=== PATIENT | female | born 1930 | race Caucasian/White ===

== ENCOUNTER 2016-09-24 12:08 | Emergency (ER) | payer OTHER ==
[~2016-09-24] VITALS: Ht 162.6 cm; Wt 56.5 kg
[~2016-09-24 12:08] MED LIST: BEN25 PO; CHLO5CAP PO; DIGO125T PO; DILT240C62 PO; FURO20TA3 PO; HYDR-3498 PO; LETR2.5T PO; RIVA20TA PO; ULT50 PO
[2016-09-24 12:11] VITALS: Ht 162.6 cm; Wt 56.5 kg
[2016-09-24] MEDS ORDERED: SOD CHLORIDE 0.9% 500 ML IV STA (15:35)
[2016-09-24 16:12] LABS: ADD UMIC YES; URINE BILIRUBIN (Dip) NEGATIVE (NEGATIVE); URINE BLOOD (Dip) NEGATIVE (NEGATIVE); URINE COLOR AMBER (YELLOW); URINE GLUCOSE (Dip) NEGATIVE (NEGATIVE); URINE KETONES (Dip) TRACE (NEGATIVE); URINE LEUKOCYTE ESTERASE (Dip) NEGATIVE (NEGATIVE); URINE NITRITE (Dip) NEGATIVE (NEGATIVE); URINE TOTAL PROTEIN (Dip) TRACE (NEGATIVE); URINE UROBILINOGEN (Dip) 0.2 E.U./dL (0.1-1.0)
[2016-09-24 16:16] LABS: BASOPHIL # 0.1 10^3/ul (0.0-0.1); BASOPHILS % 0.8 % (0.0-2.0); EOSINOPHILS # 0.1 10^3/ul (0.0-0.5); EOSINOPHILS % 0.9 % (0.0-7.0); HEMATOCRIT 37.6 % (37.0-47.0); HEMOGLOBIN 11.9 g/dl (12.0-16.0); LYMPHOCYTES % 18.1 % (15.0-51.0); MEAN CORPUSCULAR HEMOGLOBIN 25.2 pg (29.0-33.0); MEAN CORPUSCULAR HGB CONC 31.5 g/dl (32.0-37.0); MEAN CORPUSCULAR VOLUME 79.9 fl (82.0-101.0); MEAN PLATELET VOLUME 8.5 fl (7.4-10.4); MONOCYTE # 1.5 10^3/ul (0.3-0.9); MONOCYTES % 13.4 % (0.0-11.0); NEUTROPHIL # 7.4 10^3/ul (1.6-7.5); NEUTROPHILS % 66.8 % (39.0-77.0); PLATELET COUNT 324 10^3/UL (140-440); RED BLOOD COUNT 4.71 10^6/ul (4.20-5.40); RED CELL DISTRIBUTION WIDTH 16.6 % (11.5-14.5); UNCORRECTED WBC 11.1 10^3/ul (4.8-10.8); WHITE BLOOD COUNT 11.1 10^3/ul (4.8-10.8)
--- NOTE | 2016-09-24 16:18 | RADRPT ---
PROCEDURE: XR Chest AP portable CLINICAL INDICATION: Abdominal pain, fever TECHNIQUE: An AP portable radiograph of the chest was submitted. COMPARISON: 10/08/2015 FINDINGS: Support Hardware: The left central venous catheters been removed. Cardiovascular: The heart is mildly enlarged, the aorta appears tortuous while the peripheral pulmon reji vasculature is upper normal. Lung Pro: The lung pro are mildly hyperexpanded. The interstitial infiltrates have essentiall y resolved. Pleural Spaces: No pneumothorax or pleural effusion is identified. Osseous Structures: The osseous structures appear intact. Soft Tissues: The soft tissues appear unremarkable. IMPRESSION: 1. Interval removal of the right subclavian central venous catheter. 2. Mild cardiomegaly with aortic tortuosity without CHF. 3. Mild persistent pulmonary hyperexpansion with the interstitial infiltrates seen previously lina ramírezlly resolved. Physician Mattie Date Time Electronically viewed and signed by Physician Mattie on 09/24/2016 16:18 /
[2016-09-24 16:19] LABS: INR 1.47; PROTIME 17.9 Sec (12.2-14.2); PT RATIO 1.4
[2016-09-24 16:20] LABS: PARTIAL THROMBOPLASTIN TIME 48.3 Sec (25.0-35.0)
[2016-09-24 16:21] LABS: ALBUMIN 4.5 g/dl (3.3-4.9)
[2016-09-24 16:22] LABS: CHLORIDE 98 mmol/L (97-110); POTASSIUM 4.4 mmol/L (3.5-5.1); SODIUM 142 mmol/L (135-144)
[2016-09-24 16:23] LABS: BACTERIA,URINE RARE; SQUAMOUS EPITHELIAL CELL,UR RARE; URINE RBCS 0-2 /HPF (0)
[2016-09-24 16:24] LABS: ALBUMIN/GLOBULIN RATIO 1.18; ALKALINE PHOSPHATASE 175 IU/L (42-121); ANION GAP 15 (8-16); ASPARTATE AMINO TRANSFERASE 44 IU/L (15-46); BILIRUBIN,INDIRECT 0.2 mg/dl (0-1.1); BILIRUBIN,TOTAL 0.2 mg/dl (0.2-1.3); BLOOD UREA NITROGEN 17 mg/dl (7-20); CARBON DIOXIDE 33 mmol/L (21-31); CREATININE 0.46 mg/dl (0.44-1.00); TOTAL PROTEIN 8.3 g/dl (6.1-8.1)
[2016-09-24 16:25] LABS: ALANINE AMINOTRANSFERASE 53 IU/L (13-69); CALCIUM 10.2 mg/dl (8.4-10.2); GLUCOSE 116 mg/dl (70-220)
[2016-09-24 16:26] LABS: CONDITION 1; LH ANALYZER COMMENTS 1
[2016-09-24] MEDS ORDERED: CALC-58 PO (16:36)
[2016-09-24 16:37] LABS: TROPONIN-I < 0.012 ng/ml (0.00-0.12)
[2016-09-24] MEDS ORDERED: CHOL20003 PO (16:42)
[2016-09-24] MEDS ORDERED: MULT1CAP25 PO (16:45)
[2016-09-24] MEDS ORDERED: IBUP400T22 PO (16:49)
--- NOTE | 2016-09-24 16:49 | ERD ---
ER Documentation Chief Complaint Date/Time DATE: 09/24/16 TIME: 16:46 Chief Complaint FEVER , COUGH X 2 DAYS HPI This is an 86-year-old female who presents to the emergency room with a chief complaint of a fever, and a cough and body aches for 2 days. The patient states that she has had these symptoms and came to the ER today for evaluation. She does state that she has a history of cancer and states that she is not on chemotherapy at this time. She came to the ER for evaluation of her symptoms. ROS All systems reviewed and are negative except as per history of present illness. Medications Home Meds Active Scripts Rivaroxaban* (Xarelto*) 20 Mg Tablet, 20 MG PO WITH DINNER, #30 TAB 3 Refills Prov:KENDRA PERRY 04/23/15 Reported Medications Multivitamin,Ther and Minerals (Multivitamins with Minerals Hp) 1 Each Capsule, 1 EACH PO DAILY, CAP 09/24/16 Cholecalciferol (Vitamin D3) (VITAMIN D-3) 2,000 Unit Capsule, 2000 UNIT PO DAILY, CAP 09/24/16 Calcium Citrate/Vitamin D3 (Calcium Citrate - Vit D Tablet) 1 Each Tablet, 2 EACH PO DAILY, TAB 09/24/16 Diltiazem Hcl* (Cartia XT*) 240 Mg Cap.sr.24h, 240 MG PO DAILY, CAP 04/11/15 Furosemide* (Furosemide*) 20 Mg Tablet, 20 MG PO DAILY, TAB 04/11/15 Hydrocodone Bit-Acetaminophen* ([place]*) 5-325 Mg Tab, 1 TAB PO Q6 Y for SEVERE PAIN LEVEL 7-10, TAB 04/11/15 Digoxin* (Digoxin*) 0.125 Mg Tab, 0.125 MG PO DAILY, TAB 04/11/15 Discontinued Reported Medications Diphenhydramine Hcl* (Benadryl*) 25 Mg Cap, 25 MG PO Q6 Y for ITCHING, CAP 04/11/15 Letrozole* (Letrozole*) 2.5 Mg Tablet, 2.5 MG PO DAILY, TAB 04/11/15 Chlordiazepoxide* (Chlordiazepoxide*) 5 Mg Capsule, 5-10 MG PO QHS, CAP 04/11/15 Discontinued Scripts Tramadol HCl (Tramadol HCl) 50 Mg Tablet, 25 MG PO Q6 Y for PAIN, #20 TAB Prov:MIKE TORO DO 10/08/15 Allergies Allergies: Coded Allergies: No Known Allergy (Unverified , 09/24/16) PMhx/Soc History of Surgery: Yes (OVERECTOMY, HYSTERECTOMY; CHOLECYSTECTOMY) Anesthesia Reaction: No Hx Neurological Disorder: Yes (HAS SOME NUMBNESS AND TINGLING ON FEET) Hx Respiratory Disorders: No ( ) Hx Cardiac Disorders: Yes (HEART FAILURE; AFIB; HEART MURMUR) Hx Psychiatric Problems: No Hx Miscellaneous Medical Probl: Yes (COLON CA; OVARIAN CA; SEPSIS;DVT) Hx Alcohol Use: Yes Hx Substance Use: No Hx Tobacco Use: Yes (4 CIGS) Smoking Status: Current every day smoker Physical Exam Vitals Vital Signs Date Time Temp Pulse Resp B/P Pulse Ox O2 Delivery O2 Flow Rate FiO2 09/24/16 12:11 98.2 96 18 140/67 96 Physical Exam INITIAL VITAL SIGNS: Reviewed by me GENERAL: The patient is well developed and appropriate for usual state of health in no apparent distress HEENT: Pupils equal, round, and reactive to light. EOMI. There is no scleral icterus. NECK: C-spine is soft and supple, there is no meningismus. There is no cervical lymphadenopathy. LUNGS: Clear to auscultation bilaterally. There are no rales, wheezes or rhonchi. HEART: Regular rate and rhythm, no murmurs, clicks, rubs or gallops. ABDOMEN: Soft, non-tender, non-distended. There are bowel sounds in all four quadrants. No rebound or guarding. EXTREMITIES: There is no peripheral cyanosis or edema. No focal swelling or erythema. NEUROLOGICAL: The patient moves all four extremities with 5/5 strength. Cranial nerves II - XII are intact. Normal gait. Alert and oriented SKIN: There is no apparent rash or petechiae. HEME/LYMPHATIC: There is no evidence of excessive bruising or lymphedema. PSYCHIATRIC: The patient does not appear anxious or depressed. Result Diagram: 09/24/16 1550 09/24/16 1550 Results 24 hrs Laboratory Tests Test 09/24/16 15:50 Activated Partial Thromboplast Time 48.3Sec Alanine Aminotransferase (ALT/SGPT) 53IU/L Albumin 4.5g/dl Albumin/Globulin Ratio 1.18 Alkaline Phosphatase 175IU/L Anion Gap 15 Aspartate Amino Transf (AST/SGOT) 44IU/L Basophils # 0.110^3/ul Basophils % 0.8% Blood Morphology Comment Blood Urea Nitrogen 17mg/dl Calcium Level 10.2mg/dl Carbon Dioxide Level 33mmol/L Chloride Level 98mmol/L Creatinine 0.46mg/dl Direct Bilirubin 0.00mg/dl Eosinophils # 0.110^3/ul Eosinophils % 0.9% Globulin 3.80g/dl Glucose Level 116mg/dl Hematocrit 37.6% Hemoglobin 11.9g/dl INR International Normalized Ratio 1.47 Indirect Bilirubin 0.2mg/dl Lipase 27U/L Lymphocytes # 2.010^3/ul Lymphocytes % 18.1% Mean Corpuscular Hemoglobin 25.2pg Mean Corpuscular Hemoglobin Concent 31.5g/dl Mean Corpuscular Volume 79.9fl Mean Platelet Volume 8.5fl Monocytes # 1.510^3/ul Monocytes % 13.4% Neutrophils # 7.410^3/ul Neutrophils % 66.8% Nucleated Red Blood Cells # 0.010^3/ul Nucleated Red Blood Cells % 0.0/100WBC Platelet Count 43277^3/UL Potassium Level 4.4mmol/L Prothrombin Time 17.9Sec Prothrombin Time Ratio 1.4 Red Blood Count 4.7110^6/ul Red Cell Distribution Width 16.6% Sodium Level 142mmol/L Total Bilirubin 0.2mg/dl Total Protein 8.3g/dl Troponin I < 0.012ng/ml Urine Bacteria RARE Urine Bilirubin NEGATIVE Urine Clarity CLEAR Urine Color ELI Urine Glucose NEGATIVE% Urine Hemoglobin NEGATIVE Urine Ketones TRACE Urine Leukocyte Esterase NEGATIVE Urine Microscopic RBC 0-2/HPF Urine Microscopic WBC 0-2/HPF Urine Nitrite NEGATIVE Urine Specific [place] 1.025 Urine Squamous Epithelial Cells RARE Urine Total Protein TRACE Urine Urobilinogen 0.2 E.U./dL Urine pH 6.0 White Blood Count 11.110^3/ul Current Medications Medications (Trade) Dose Ordered Sig/Remi Route PRN Reason Start Time Stop Time Status Last Admin Dose Admin Sodium Chloride (NS) 500 ml @ 500 mls/hr Q1H STAT IV 09/24/16 15:35 09/24/16 16:34 DC 09/24/16 15:41 Procedures/MDM EKG: Rate/Rhythm: [Normal Sinus Rhythm] QRS, ST, T-waves: [No changes consistent w/ acute ischemia] Impression: [No evidence of ischemia or arrhythmia] Chest X-ray 1V Interpreted by me: Soft Tissue: No acute abnormalities Bones: No acute abnormalities Mediastinum/Cardiac Silhouette/Lungs: [No acute abnormalities] This 86-year-old female presents to the emergency room for evaluation of a fever , cough, body aches and a headache. Patient's symptoms have been present for 2 days duration. On my examination this patient is afebrile, not tachycardic, she did have a slightly dry mucous membranes on my examination. Lab work was obtained which was normal. I did also obtain a urinalysis which shows mild dehydration. X-ray does not show any signs of acute infiltrates. This patient was given 500 cc of fluid in the emergency room, she was also given 200 mg of Motrin p.o. I feel her symptoms are likely viral in nature and she is suffering from myalgias from a viral syndrome. This patient's influenza swab was also negative and will be discharged home at this time. Departure Diagnosis: Primary Impression: Fever Additional Impressions: Viral syndrome Ketonuria Condition: Stable MIKE TORO DO Sep 24, 2016 16:49
[2016-09-24] MEDS ORDERED: IBUPROFEN 200 MG TAB PO ONE (17:00)
[2016-09-24 17:30] VITALS: BP 151/75; PULSE 88; RESP 18; TEMP 98.2
== END 2016-09-24 17:31 | disposition home or self-care (01) ==
LOC: E/R 12:08
DX: R50.9 Fever, unspecified (principal); B34.9 Viral infection, unspecified; R82.4 Acetonuria; I50.9 Heart failure, unspecified; F17.210 Nicotine dependence, cigarettes, uncomplicated; R40.2142 Coma scale, eyes open, spontaneous, at arrival to emergency department; R40.2252 Coma scale, best verbal response, oriented, at arrival to emergency department; R40.2362 Coma scale, best motor response, obeys commands, at arrival to emergency department; E86.0 Dehydration; Z85.038 Personal history of other malignant neoplasm of large intestine; Z85.43 Personal history of malignant neoplasm of ovary
CPT/HCPCS: 71010; 80053; 81001; 83690; 84484; 85025; 85610; 85730; 87400; 93005; J7040; 36415; 81003

== ENCOUNTER 2018-12-23 02:53 | Emergency (ER) | payer MEDICARE, BC ==
[~2018-12-23] VITALS: Ht 160 cm; Wt 55.0 kg
[~2018-12-23 02:53] MED LIST changes: -BEN25 PO; +CALC-58 PO; -CHLO5CAP PO; +CHOL200073 PO; +IBUP-1561 PO; -LETR2.5T PO; +MULT1CAP25 PO; -RIVA20TA PO; +RIVA20TA5 PO; -ULT50 PO
[2018-12-23 03:02] VITALS: Ht 160 cm; Wt 55.0 kg
[2018-12-23] MEDS ORDERED: HYDROCODONE/APAP (10/325) TAB PO ONE (03:30)
[2018-12-23] MEDS ORDERED: HYDR-3980 PO (05:08)
--- NOTE | 2018-12-23 05:17 | ERD ---
ER Documentation Chief Complaint Chief Complaint PT reports trip and fall c/o L back pain KATHIA WEBER This is an 88-year-old female complains of back pain status post trip and fall approximately 3 hours prior to arrival. She denies any head trauma or loss of consciousness but does complain of some lumbar back pain. Denies any bowel or bladder incontinence. Denies any focal neurological complaints. Pain is mild to moderate intensity in the lumbar spine and is paraspinal bilaterally. ROS All systems reviewed and are negative except as per history of present illness. Medications Home Meds Active Scripts Hydrocodone/Acetaminophen ([place] 10-325 Tablet) 1 Each Tablet, 1 TAB PO Q6H PRN for PAIN, #7 TAB Prov:SCOTT SWANSON 12/23/18 Ibuprofen* (Motrin*) 400 Mg Tab, 200 MG PO Q8, #20 TAB Prov:MIKE TORO DO 09/24/16 Rivaroxaban* (Xarelto*) 20 Mg Tablet, 20 MG PO WITH DINNER, #30 TAB 3 Refills Prov:KENDRA PERRY 04/23/15 Reported Medications Multivitamin,Ther and Minerals (Multivitamins with Minerals Hp) 1 Each Capsule, 1 EACH PO DAILY, CAP 09/24/16 Cholecalciferol (Vitamin D3) (VITAMIN D-3) 2,000 Unit Capsule, 2000 UNIT PO DAILY, CAP 09/24/16 Calcium Citrate/Vitamin D3 (Calcium Citrate - Vit D Tablet) 1 Each Tablet, 2 EACH PO DAILY, TAB 09/24/16 Diltiazem Hcl* (Cartia XT*) 240 Mg Cap.sr.24h, 240 MG PO DAILY, CAP 04/11/15 Furosemide* (Furosemide*) 20 Mg Tablet, 20 MG PO DAILY, TAB 04/11/15 Hydrocodone Bit-Acetaminophen* ([place]*) 5-325 Mg Tab, 1 TAB PO Q6 PRN for SEVERE PAIN LEVEL 7-10, TAB 04/11/15 Digoxin* (Digoxin*) 0.125 Mg Tab, 0.125 MG PO DAILY, TAB 04/11/15 Allergies Allergies: Coded Allergies: No Known Allergy (Unverified , 09/24/16) PMhx/Soc History of Surgery: Yes (OVERECTOMY, HYSTERECTOMY; CHOLECYSTECTOMY) Anesthesia Reaction: No Hx Neurological Disorder: Yes (HAS SOME NUMBNESS AND TINGLING ON FEET) Hx Respiratory Disorders: No ( ) Hx Cardiac Disorders: Yes (HEART FAILURE; AFIB; HEART MURMUR) Hx Psychiatric Problems: No Hx Miscellaneous Medical Probl: Yes (COLON CA; OVARIAN CA; SEPSIS;DVT) Hx Alcohol Use: Yes Hx Substance Use: No Hx Tobacco Use: Yes (4 CIGS) Smoking Status: Current every day smoker Physical Exam Vitals Vital Signs Date Temp Pulse Resp B/P (MAP) Pulse Ox O2 O2 Flow FiO2 Time Delivery Rate 12/23/18 98.3 98 16 184/107 95 03:02 (132) Physical Exam Const: No acute distress Head: Atraumatic Eyes: Normal Conjunctiva ENT: Normal External Ears, Nose and Mouth. Neck: Full range of motion. No meningismus. Resp: Clear to auscultation bilaterally Cardio: Regular rate and rhythm, no murmurs Abd: Soft, non tender, non distended. Normal bowel sounds Skin: No petechiae or rashes Back: No midline or flank tenderness Ext: No cyanosis, or edema Neur: Awake and alert Psych: Normal Mood and Affect Results 24 hrs Current Medications Medications Dose Sig/Remi Start Time Status Last (Trade) Ordered Route PRN Stop Time Admin Dose Reason Admin 1 tab ONCE ONCE 12/23/18 DC Acetaminophen PO 03:30 / 12/23/18 03:31 Hydrocodone Bitart ([place] ()) Procedures/MDM X-ray Pelvis 1V Interpreted by me: Bones: [No fracture] Joints: [No dislocation] Foreign body: [None] CTs of the head and C-spine were negative X-ray LS-Spine 3V Interpreted by me: Bones: Old fracture at L1 Joints: [No dislocation] Foreign body: [None] Medical decision making: Patient's musculoskeletal symptoms have stabilized while they have been evaluated in the department and are appropriate for outpatient work up. No evidence of cauda equina, cord compression, infiltrative, or infectious etiology. Departure Diagnosis: Primary Impression: Injury of back Encounter type: initial encounter Qualified Codes: S39.92XA - Unspecified injury of lower back, initial encounter Additional Impression: Back pain Back pain location: back pain in unspecified location Chronicity: unspecified Back pain laterality: unspecified Qualified Codes: M54.9 - Dorsalgia, unspecified Condition: Stable Patient Instructions: Contusion, Back SCOTT SWANSON Dec 23, 2018 05:17
[2018-12-23 05:38] VITALS: BP 174/94; PULSE 74; RESP 16
== END 2018-12-23 05:37 | disposition home or self-care (01) ==
LOC: E/R 02:53
DX: S39.92XA Unspecified injury of lower back, initial encounter (principal); I50.9 Heart failure, unspecified; F17.210 Nicotine dependence, cigarettes, uncomplicated; W01.0XXA Fall on same level from slipping, tripping and stumbling without subsequent striking against object, initial encounter; Y92.9 Unspecified place or not applicable; Z79.01 Long term (current) use of anticoagulants; Z85.038 Personal history of other malignant neoplasm of large intestine
CPT/HCPCS: 70450; 72100; 72125; 72170